=== PATIENT | male | born 1965 | race Caucasian/White ===

== ENCOUNTER 2018-05-29 10:46 | Inpatient (IN) | payer OTHER ==
[~2018-05-29] VITALS: Ht 170.2 cm; Wt 100.7 kg
[2018-05-29 11:17] VITALS: BP 165/95
--- NOTE | 2018-05-29 11:32 | NUR ---
52 yo m bib self with c/o generalized abdominal pain since 0300 today with nausea. Patient denies any recent fevers, diarrhea, or vomitting. pt reports that his last bm was yesterday, and that it was "normal". Pt reports feeling as though his abdomen is distended and bloated. abd is large, round, and firm. Pt reports that he has been eating/drinking fine up until this morning. Patient also reports of mid/lower back pain. pt aaox4, gcs 15, cms intact. rr even and unlabored, lungs bl clear. bowel sounds active x 4 quadrants. ambulatory w/ steady gait. er md notified. pt needs met. safety precautions in place. will continue to monitor.
[2018-05-29] MEDS ORDERED: NACL 0.9% 1,000 ML IV ONE (11:56)
[2018-05-29] MEDS ORDERED: PROMETHAZINE 25 MG/ML VIAL IM ONE (12:00)
[2018-05-29] MEDS ORDERED: HYDROmorphone PFS 2 MG/ML SYR IVP ONE (12:00)
[2018-05-29] MEDS ORDERED: ONDANSETRON 4 MG/2 ML VIAL IVP ONE (12:00)
[2018-05-29] MEDS ORDERED: KETOROLAC 30 MG/ML VIAL IVP ONE (12:00)
[2018-05-29 12:30] LABS: BASOPHILS # (AUTO) 0.1 K/uL (0.00-0.22); BASOPHILS % (AUTO) 0.8 % (0.0-2.0); EOSINOPHILS # (AUTO) 0.1 K/uL (0-0.4); EOSINOPHILS % (AUTO) 0.6 % (0.0-4.0); HEMATOCRIT 42.7 % (36-52); HEMOGLOBIN 14.9 g/dL (12.0-18.0); LYMPHOCYTES # (AUTO) 2.4 K/uL (2.0-11.5); LYMPHOCYTES % (AUTO) 14.4 % (20.5-51.1); MEAN CORPUSCULAR HEMOGLOBIN 32 pg (27-31); MEAN CORPUSCULAR HGB CONC 35 g/dL (33-37); MEAN CORPUSCULAR VOLUME 90.5 fL (80-94); MONOCYTES # (AUTO) 1.8 K/uL (0.8-1.0); MONOCYTES % (AUTO) 10.9 % (1.7-9.3); NEUTROPHILS # (AUTO) 12.3 K/uL (1.8-7.7); NEUTROPHILS % (AUTO) 73.3 % (42.2-75.2); PLATELET COUNT (AUTO) 256 K/uL (140-450); RED BLOOD CELL COUNT(AUTO) 4.71 MIL/uL (4.20-6.10); WHITE BLOOD COUNT (AUTO) 16.8 K/uL (4.8-10.8)
--- NOTE | 2018-05-29 12:30 | NUR ---
pt resting on hospital [facility] w/ vss and rr even and unlabored. safety precautions in place. will continue to monitor.
[2018-05-29 12:45] LABS: APPEARANCE,URINE CLEAR (CLEAR); BILIRUBIN,URINE NEGATIVE (NEGATIVE); BLOOD, URINE TRACE-L (NEGATIVE); COLOR,URINE YELLOW (YELLOW); LEUKOCYTE ESTERASE ,URINE NEGATIVE (NEGATIVE); NITRITE, URINE NEGATIVE (NEGATIVE); UGLUCOSE NEGATIVE (NEGATIVE)
[2018-05-29 12:57] LABS: ANION GAP 12.4 (8-16); CARBON DIOXIDE 25.2 mmol/L (21-32); CHLORIDE 98 mmol/L (98-107); CREATININE 2.8 mg/dL (0.7-1.3); GFR ARICAN-AMERICAN 31 mL/min (>90); GLUCOSE 118 mg/dL (74-106); POTASSIUM 3.6 mmol/L (3.5-5.1); SODIUM SERUM 132 mmol/L (136-145); UREA NITROGEN, BLOOD 36 mg/dL (7-18)
[2018-05-29 12:58] LABS: RBC,URINE 0-5 (RARE) /HPF (0-5); WBC,URINE 0-5 (RARE) /HPF (0-5)
[2018-05-29 13:03] LABS: AMYLASE 43 U/L (25-115); ASPARTATE AMINOTRANSFERASE 39 U/L (15-37); BARBITURATE, URINE NEG. ng/ml (NEG <=200); BENZODIAZEPINE, URINE NEG. ng/mL (NEG <=200); CANNABINOID, URINE NEG. ng/mL (NEG <=50); COCAINE, URINE NEG. ng/mL (NEG <=300); LIPASE 177 U/L (73-393); OPIATE, URINE NEG. ng/mL (NEG <=2000); PHENCYCLIDINE SCREEN,URINE NEG. ng/mL (NEG <=25); TOTAL BILIRUBIN 1.2 mg/dL (0.0-1.0)
--- NOTE | 2018-05-29 13:07 | NUR ---
pt taken to ct scan at this time via w/c w/ ebenezers
--- NOTE | 2018-05-29 14:00 | NUR ---
pt resting comfortably in [facility] at this time w/ vss and rr even and unlabored. will continue to monitor.
[2018-05-29 14:20] LABS: URIC ACID 8.9 mg/dL (2.6-7.2)
[2018-05-29 14:32] LABS: MAGNESIUM 1.5 mg/dL (1.8-2.4)
--- NOTE | 2018-05-29 15:05 | NUR ---
u/s at bedside at this time.
[2018-05-29] MEDS ORDERED: ONDANSETRON 4 MG/2 ML VIAL IM/IVP PRN (16:05)
[2018-05-29] MEDS ORDERED: ACETAMINOPHEN 325 MG TAB PO PRN (16:05)
[2018-05-29] MEDS: NACL 0.9% 1,000 ML IV SCH (16:05)
[2018-05-29] MEDS ORDERED: DOCUSATE SODIUM 100 MG GELCAP PO PRN (16:05)
--- NOTE | 2018-05-29 16:32 | NUR ---
pt resting comfortably in [facility] at this time w/ vss and rr even and unlabored. safety precautions in place. will continue to monitor.
[2018-05-29 16:37] LABS: PROTHROMBIN TIME 9.7 secs (10.8-13.4)
[2018-05-29 16:48] LABS: CHOL/HDL RATIO 3.2 (1-4.5)
[2018-05-29 16:49] LABS: THYROID STIMULATING HORMONE 0.99 uIU/mL (0.34-3.74)
[2018-05-29] MEDS ORDERED: MAG SULF 2000 MG/WATER PREMIX 50 ML IV ONE (16:50)
--- NOTE | 2018-05-29 17:35 | NUR ---
Patient will be admitted to care of [facility]. Admited tele. Will go to room 120a. Belongings list completed. Report to ryley pressley.
--- NOTE | 2018-05-29 17:35 | NUR ---
ARRIVED ON THE UNIT WITH 2 ER NURSES ON A WHEELCHAIR. PT AMBULATED FROM WHEELCHAIR TO THE BED. STEADY GAIT. PT IS ON ROOM AIR. TELE MONITOR ADMINISTERED. IV ON R AC 20G. V/S WITHIN NORMAL LIMITS. C/O OF ABD PAIN 5-6/10. PT IS WEARING GOWN OVER HIS JEANS AND TSHIRT. 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 MRSA SCREENING DONE. ADMINISTERED BROWN SOCKS. WILL CONTINUE TO MONITOR PT.
[2018-05-29 18:00] VITALS: BP 133/87
[2018-05-29] MEDS ORDERED: amLODIPine 5 MG TAB PO SCH (18:00)
[2018-05-29] MEDS ORDERED: THIAMINE 100 MG TAB PO SCH (18:00)
[2018-05-29] MEDS ORDERED: FAMOTIDINE 20 MG TAB PO SCH (18:00)
[2018-05-29] MEDS ORDERED: MULTIVITAMIN 1 TAB PO SCH (18:00)
[2018-05-29] MEDS ORDERED: LORazepam 1 MG TAB PO SCH (18:00)
[2018-05-29] MEDS ORDERED: DOCUSATE SODIUM 100 MG GELCAP PO SCH (18:00)
[2018-05-29] MEDS ORDERED: FOLIC ACID 1 MG TAB PO SCH (18:00)
--- NOTE | 2018-05-29 18:05 | NUR ---
HUNG IVF AT 100ML/HR ORDERED. WILL CONTINUE TO MONITOR PT. SensorTran TECH IS HERE TO DO THE COMPLETE ABD SERIES.
[2018-05-29] MEDS: MAGNESIUM SULFATE 1GM in DEXTROSE 5% 100 ML PREMIX IV SCH ×2 (18:44→21:15)
[2018-05-29] MEDS: MORPHINE SULFATE 2 MG/ML SYR IVP PRN (18:44)
--- NOTE | 2018-05-29 18:50 | NUR ---
SCHEDULED MEDS GIVEN. PT REQUESTED PAIN MEDS. 04/01. ADMINISTERED MORPHINE. PT TOLERATED WELL. WILL CONTINUE TO MONITOR PT.
--- NOTE | 2018-05-29 19:15 | NUR ---
ENDORSED PT TO TO THE INTEGRATED PROGRAM TEACHER NURSE AT BEDSIDE FOR CONTINUITY OF CARE. PT IS IN STABLE CONDITION.
--- NOTE | 2018-05-29 19:15 | NUR ---
RECEIVED BEDSIDE REPORT FROM DAY SHIFT RN TANJA, PT IN BED, AWAKE, ALERT AND ABLE TO MAKE NEEDS KNOWN, ON RA, NO C/O PAIN AT THIS TIME. IV IN RIGHT FA 20 G, INFUSING MG AT 100 ML/HR. WILL INFUSE 2ND BAG ONCE 1ST IS COMPLETE. UPDATED BOARD, EXPLAINED PLAN OF CARE, WILL CONTINUE TO MONITOR.
[2018-05-29 20:00] VITALS: BP 122/70
--- NOTE | 2018-05-29 21:00 | NUR ---
PT RESTING IN BED NO SIGNS OF DISTRESS. WILL CONTINUE TO MONITOR CALL LIGHT WITHIN REACH.
--- NOTE | 2018-05-29 23:00 | NUR ---
PT SLEEPING IN BED NO SIGNS OF DISTRESS. WILL CONTINUE TO MONITOR CALL LIGHT WITHIN REACH.
[2018-05-30] VITALS: BP 155/100
[2018-05-30] MEDS: MORPHINE SULFATE 2 MG/ML SYR IVP PRN ×2 (00:50→08:51)
--- NOTE | 2018-05-30 00:50 | NUR ---
PT C/O PAIN 10/10 IN ABDOMEN. MEDICATED ACCORDING TO MD ORDER.
[2018-05-30] MEDS: NACL 0.9% 1,000 ML IV SCH ×4 (00:54→19:54)
--- NOTE | 2018-05-30 03:00 | NUR ---
PT ASLEEP NO SIGNS OF DISTRESS. WILL CONTINUE TO MONITOR.
[2018-05-30 04:00] VITALS: BP 148/50
[2018-05-30] MEDS: LORazepam 1 MG TAB PO SCH ×3 (04:55→21:21)
--- NOTE | 2018-05-30 05:30 | NUR ---
D/C IV D/T PAIN. STARTED NEW IV IN RIGHT ARM, 22 G, DRESSING INTACT. DUE MEDICATIONS GIVEN PT TOLERATED WELL.
[2018-05-30 06:20] LABS: T4 (THYROXINE) 7.5 ug/dL (4.5-12.0)
--- NOTE | 2018-05-30 07:13 | NUR ---
ENDORSED PT TO DAY SHIFT NURSE, PT STABLE
--- NOTE | 2018-05-30 07:14 | NUR ---
RECEIVED BEDSIDE REPORT FROM PROP ATTENDANT NURSE FOR CONTINUITY OF CARE, PT IN BED, AWAKE, ALERT AND ABLE TO MAKE NEEDS KNOWN, ON RA, NO C/O PAIN AT THIS TIME. IV IN RIGHT FA 22 G, INFUSING NS AT 120 ML/HR. UPDATED BOARD, EXPLAINED PLAN OF CARE, PATIENT VERBALIZED UNDERSTANDING. SAFETY PRECAUTION IN PLACE, CALL LIGHT WITHIN REACH. WILL CONTINUE TO MONITOR PATIENT.
[2018-05-30 07:50] VITALS: BP 140/97
[2018-05-30] MEDS: FOLIC ACID 1 MG TAB PO SCH (08:49)
[2018-05-30] MEDS: MULTIVITAMIN 1 TAB PO SCH (08:49)
[2018-05-30] MEDS: DOCUSATE SODIUM 100 MG GELCAP PO SCH (08:49)
[2018-05-30] MEDS: THIAMINE 100 MG TAB PO SCH (08:49)
[2018-05-30] MEDS: FAMOTIDINE 20 MG TAB PO SCH (08:49)
[2018-05-30] MEDS: LACTOBACILLUS RHAMNOSUS GG 1 EACH CAP PO SCH (08:49)
[2018-05-30] MEDS: amLODIPine 5 MG TAB PO SCH (08:50)
--- NOTE | 2018-05-30 08:51 | NUR ---
ORDERED MEDICATION GIVEN. PATIENT TOLERATED THEM WELL. PATIENT C/O ABD PAIN 06/02. ORDERED PAIN MEDICATION GIVEN. PATIENT TOLERATING IT WELL. SAFETY PRECAUTION IN PLACE, CALL LIGHT WITHIN REACH, WILL CONTINUE TO MONITOR PATIENT.
[2018-05-30 08:57] LABS: BASOPHILS # (AUTO) 0.1 K/uL (0.00-0.22); BASOPHILS % (AUTO) 0.9 % (0.0-2.0); EOSINOPHILS # (AUTO) 0.3 K/uL (0-0.4); EOSINOPHILS % (AUTO) 2.3 % (0.0-4.0); HEMOGLOBIN 13.2 g/dL (12.0-18.0); LYMPHOCYTES # (AUTO) 2.1 K/uL (2.0-11.5); LYMPHOCYTES % (AUTO) 18.8 % (20.5-51.1); MEAN CORPUSCULAR HEMOGLOBIN 31 pg (27-31); MEAN CORPUSCULAR HGB CONC 34 g/dL (33-37); MEAN CORPUSCULAR VOLUME 92.1 fL (80-94); MONOCYTES # (AUTO) 1.1 K/uL (0.8-1.0); MONOCYTES % (AUTO) 9.9 % (1.7-9.3); NEUTROPHILS # (AUTO) 7.5 K/uL (1.8-7.7); NEUTROPHILS % (AUTO) 68.1 % (42.2-75.2); PLATELET COUNT (AUTO) 236 K/uL (140-450); RED BLOOD CELL COUNT(AUTO) 4.24 MIL/uL (4.20-6.10); RED CELL DISTRIBUTION WIDTH 12.8 % (11.6-13.7)
--- NOTE | 2018-05-30 09:06 | NUR ---
PATIENT HAS BEEN SCREENED AND CATEGORIZED MODERATE NUTRITION RISK. PATIENT WILL BE SEEN WITHIN 3-5 DAYS OF ADMISSION. 06/01/18 06/03/[address]
[2018-05-30 09:13] LABS: ANION GAP 10.8 (8-16); CARBON DIOXIDE 25.4 mmol/L (21-32); POTASSIUM 3.2 mmol/L (3.5-5.1)
[2018-05-30 12:00] VITALS: BP 160/91
[2018-05-30] MEDS: KCL 20 MEQ/WATER INJ PREMIX 200 ML IV SCH ×2 (12:00→13:10)
[2018-05-30] MEDS ORDERED: CALCIUM ACETATE 667 MG TAB PO SCH (12:00)
--- NOTE | 2018-05-30 12:54 | NUR ---
PATIENT SITTING AT SIDE OF BED EATING LUNCH. NO SIGNS OF DISTRESS OR SOB NOTED ON ROOM AIR. ORDERED MEDICATION GIVEN. PATIENT TOLERATING IT WELL. PATIENT INQUIRED ABOUT PAIN MEDICATION. INFORMED HIM OF SCHEDULE, HE VERBALIZED UNDERSTANDING. WILL CONTINUE TO MONITOR PATIENT.
--- NOTE | 2018-05-30 13:50 | NUR ---
DR. SOLIS IN TO SEE THE PATIENT. WILL WAIT FOR HIS ASSESSMENT.
[2018-05-30] MEDS: HYDROcodone/APAP 7.5/325 MG 1 TAB PO PRN ×3 (14:31→23:01)
--- NOTE | 2018-05-30 14:31 | NUR ---
PATIENT ASKED ABOUT HIS PAIN MEDICATION, DR. SOLIS DISCONTINUED MORPHINE. PATIENT C/O ABD PAIN 03/02. NORCO 7.5 GIVEN. PATIENT TOLERATING IT WELL. SAFETY PRECAUTION IN PLACE, CALL LIGHT WITHIN REACH, WILL CONTINUE TO MONITOR PATIENT. Addendum: 05/30/18 at 1756 by Da Jose RN ORDERED MEDICATIONS GIVEN. PATIENT TOLERATED THEM WELL. NO SIGNS OF DISTRESS OR SOB NOTED ON ROOM AIR. WILL CONTINUE TO MONITOR PATIENT.
--- NOTE | 2018-05-30 14:50 | NUR ---
CM NOTE INITIAL REVIEW FAXED TO [facility] [phone] BRENDA PH# [phone] NIMA MARTINEZ PH# [phone] Addendum: 05/30/18 at 1452 by Meg Bauman CM INITIAL REVIEW FAXED ALSO TO [facility] [phone] MARIA DEL ROSARIO PH# [phone]
[2018-05-30] MEDS ORDERED: MAGNESIUM CITRATE 300 ML BTL PO SCH (15:00)
[2018-05-30 16:00] VITALS: BP 133/72
--- NOTE | 2018-05-30 16:10 | NUR ---
PATIENT RESTING IN BED, WATCHING SHOW ON TABLET. C/O ABD PAIN BUT AWARE OF PAIN MEDICATION SCHEDULED. WILL CONTINUE TO MONITOR PATIENT.
--- NOTE | 2018-05-30 17:50 | NUR ---
CALLED PHARMACIST ABOUT PATIENT'S KRIDER. 2 BAGS GIVEN ORDERED. HOWEVER, ON EMAR, ANOTHER BAG IS TO BE GIVEN ON 05/31/18. INFORMED PHARMACIST OF SITUATION. HE VERBALIZED UNDERSTANDING AND DISCONTINUED ORDER FOR TOMORROW.
--- NOTE | 2018-05-30 19:54 | NUR ---
PATIENT REPORT GIVEN TO QUALITY INTERNSHIP NURSE AT BEDSIDE FOR CONTINUITY OF CARE. PATIENT IN STABLE CONDITION. FRIEND AT BEDSIDE.
--- NOTE | 2018-05-30 19:55 | NUR ---
RECEIVED PT FROM BRENT RN PT IS AAOX4 AMBBULATOY IV ON RT ARM INFUSING WELL ON TELEMETRY SR NOT DISTRES NOTED A THIS TIME
[2018-05-30 20:00] VITALS: BP 146/87
--- NOTE | 2018-05-30 23:58 | NUR ---
AFTER PAIN MEDIC GIVEN PT SLEEP QUIET PT ON TELMETRY SR
[2018-05-31 04:00] VITALS: BP 130/91
--- NOTE | 2018-05-31 04:00 | NUR ---
SPONGE BATH GIVEN LINEN CHANGED PT REMAIN STABLE AT THIS TIME ON TELEMETRY SR BBB
[2018-05-31] MEDS: LORazepam 1 MG TAB PO SCH ×2 (05:46→12:59)
--- NOTE | 2018-05-31 06:30 | NUR ---
PT REMAIN STABLE NOT DISTRESS NOTED ON TELEMETRY SR BBB
[2018-05-31 07:10] LABS: BASOPHILS # (AUTO) 0.1 K/uL (0.00-0.22); BASOPHILS % (AUTO) 1.5 % (0.0-2.0); EOSINOPHILS # (AUTO) 0.3 K/uL (0-0.4); EOSINOPHILS % (AUTO) 3.4 % (0.0-4.0); HEMOGLOBIN 12.7 g/dL (12.0-18.0); LYMPHOCYTES # (AUTO) 2.8 K/uL (2.0-11.5); LYMPHOCYTES % (AUTO) 31.8 % (20.5-51.1); MEAN CORPUSCULAR HEMOGLOBIN 32 pg (27-31); MEAN CORPUSCULAR HGB CONC 34 g/dL (33-37); MEAN CORPUSCULAR VOLUME 91.6 fL (80-94); MONOCYTES # (AUTO) 0.8 K/uL (0.8-1.0); MONOCYTES % (AUTO) 9.5 % (1.7-9.3); NEUTROPHILS # (AUTO) 4.8 K/uL (1.8-7.7); NEUTROPHILS % (AUTO) 53.8 % (42.2-75.2); PLATELET COUNT (AUTO) 233 K/uL (140-450); RED BLOOD CELL COUNT(AUTO) 4.04 MIL/uL (4.20-6.10); RED CELL DISTRIBUTION WIDTH 12.8 % (11.6-13.7); WHITE BLOOD COUNT (AUTO) 8.9 K/uL (4.8-10.8)
[2018-05-31 07:18] LABS: ANION GAP 10.3 (8-16); CARBON DIOXIDE 28.2 mmol/L (21-32); CREATININE 1.3 mg/dL (0.7-1.3); POTASSIUM 3.5 mmol/L (3.5-5.1)
--- NOTE | 2018-05-31 07:20 | NUR ---
RECEIVED BEDSIDE REPORT FROM THERMODYNAMICIST NURSE. PATIENT IS AWAKE, ALERT AND ORIENTEDX4. NO SIGNS OF DISTRESS ON ROOM AIR. BED IN LOW POSITION. CALL LIGHT WITHIN REACH. NO COMPLAINTS OF PAIN. PATIENT AMBULATES TO THE RESTROOM. SKIN IS INTACT. IV ON R FA 22G INFUSING NS AT 80. CLEAN, DRY AND INTACT. TELE MONITOR IN PLACE. WILL CONTINUE TO MONITOR THE PATIENT
[2018-05-31 07:24] LABS: MAGNESIUM 2.2 mg/dL (1.8-2.4); PHOSPHORUS 3.5 mg/dL (2.5-4.9)
[2018-05-31 08:00] VITALS: BP 146/88
[2018-05-31] MEDS: NACL 0.9% 1,000 ML IV SCH (08:00)
[2018-05-31] MEDS: amLODIPine 5 MG TAB PO SCH (08:12)
[2018-05-31] MEDS: HYDROcodone/APAP 7.5/325 MG 1 TAB PO PRN ×4 (08:12→22:20)
[2018-05-31] MEDS: FAMOTIDINE 20 MG TAB PO SCH (08:14)
[2018-05-31] MEDS: LACTOBACILLUS RHAMNOSUS GG 1 EACH CAP PO SCH (08:14)
[2018-05-31] MEDS: THIAMINE 100 MG TAB PO SCH (08:14)
[2018-05-31] MEDS: FOLIC ACID 1 MG TAB PO SCH (08:14)
[2018-05-31] MEDS: MULTIVITAMIN 1 TAB PO SCH (08:14)
[2018-05-31] MEDS: DOCUSATE SODIUM 100 MG GELCAP PO SCH (08:15)
--- NOTE | 2018-05-31 08:15 | NUR ---
ADMINISTERED MEDS. PATIENT TOLERATED WELL. ADMINISTERED PRN PAIN MEDS. BED IN LOW POSITION. CALL LIGHT WITHIN REACH. WILL CONTINUE TO MONITOR
--- NOTE | 2018-05-31 10:21 | NUR ---
PATIENT SITTING IN BED. NO SIGNS OF DISTRESS. NO COMPLAINTS AT THIS TIME. HE JUST WANTS TO KNOW WHEN HE IS GOING HOME. TOLD HIM THEY WANT TO MONITOR HIM ONE MORE DAY PER DR RAO TO SEE IF THE FOREIGN OBJECT IS REMOVED AFTER BEING GIVEN LAXATIVES. PATIENT VERBALIZED UNDERSTANDING. WILL CONTINUE TO MONITOR THE PATIENT
[2018-05-31 12:00] VITALS: BP 147/86
--- NOTE | 2018-05-31 12:05 | NUR ---
ADMINISTERED MEDS. PATIENT TOLERATED WELL. WILL CONTINUE TO MONITOR THE PATIENT. PATIENT IS CURRENTLY EATING. BED IN LOW POSITION. CALL LIGHT WITHIN REACH
--- NOTE | 2018-05-31 13:00 | NUR ---
ADMINISTERED MED FOR ALCOHOL WITHDRAW. PATIENT TOLERATED WELL. PATIENT WANTS TO GO HOME BECAUSE HE SAID ITS EXPENSIVE STAYING AT A HOSPITAL BUT WANTS TO TALK TO DR RAO TO MAKE A DECISION. DR RAO SAID SHE WILL BE IN SHORTLY. WILL CONTINUE TO MONITOR THE PATIENT
[2018-05-31] MEDS ORDERED: SIMETHICONE 80 MG TAB.CHEW PO PRN (13:40)
--- NOTE | 2018-05-31 14:50 | NUR ---
DR RAO TALKED TO THE PATIENT. ANSWERED ALL HIS QUESTIONS AT THIS TIME. PATIENT SAID HE WILL STAY TO BE MONITORED ONE MORE DAY. WILL CONTINUE TO MONITOR THE PATIENT
[2018-05-31 16:00] VITALS: BP 160/95
--- NOTE | 2018-05-31 16:12 | NUR ---
ADMINISTERED PRN PAIN MEDS. PATIENT TOLERATED WELL. WILL CONTINUE TO MONITOR THE PATIENT.
[2018-05-31] MEDS: METOPROLOL 25 MG TAB PO SCH (17:05)
--- NOTE | 2018-05-31 17:23 | NUR ---
PATIENT IS SLEEPING. NO SIGNS OF DISTRESS ON ROOM AIR. BED IN LOW POSITION. CALL LIGHT WITHIN REACH
[2018-05-31] MEDS ORDERED: METOPROLOL 25 MG TAB ONE (17:32)
--- NOTE | 2018-05-31 17:33 | NUR ---
ADMINISTERED BP MED. PATIENT TOLERATED WELL. BED IN LOW POSITION. CALL LIGHT WITHIN REACH. WILL CONTINUE TO MONITOR THE PATIENT
--- NOTE | 2018-05-31 19:23 | NUR ---
GAVE BEDSIDE REPORT TO PRIMER INSPECTOR NURSE. ENDORSED PATIENT IN STABLE CONDITION
--- NOTE | 2018-05-31 19:24 | NUR ---
RECEIVED REPORT FROM DAY SHIFT NURSE. PT LYING COMFORTABLY IN BED. AAOX4. NO C/O PAIN OR SOB. PT ON ROOM AIR. IV TO RIGHT FA #22G, NS AT 80 ML/HR, INFUSING WELL. SKIN INTACT. DISCUSSED PLAN OF CARE, PT VERBALIZED UNDERSTANDING. CALL LIGHT WITHIN REACH.
[2018-05-31 20:00] VITALS: BP 146/89
--- NOTE | 2018-05-31 22:20 | NUR ---
PT C/O ABDOMINAL PAIN 6/10 SCALE. NORCO 7.5/325 MG GIVEN ORDERED. PT TOLERATED WELL.
[2018-06-01] VITALS: BP 149/96
--- NOTE | 2018-06-01 00:10 | NUR ---
[facility]/96. DR. CHAPMAN MADE AWARE. NO NEW ORDER.
--- NOTE | 2018-06-01 02:30 | NUR ---
PT SLEEPING BUT EASILY AROUSABLE. NO S/S OF RESP DISTRESS. NO S/S OF PAIN.
[2018-06-01] MEDS: HYDROcodone/APAP 7.5/325 MG 1 TAB PO PRN ×2 (03:52→09:21)
--- NOTE | 2018-06-01 03:52 | NUR ---
PRN PAIN MED NORCO 7.5/325 MG GIVEN FOR MODERATE PAIN. PT TOLERATED WELL.
--- NOTE | 2018-06-01 06:10 | NUR ---
PT SLEEPING. RESP EVEN AND UNLABORED. NO S/S OF PAIN OR DISCOMFORT.
--- NOTE | 2018-06-01 07:09 | NUR ---
ENDORSED PT TO DAY SHIFT NURSE. PT IN STABLE CONDITION.
--- NOTE | 2018-06-01 07:09 | NUR ---
ASSUMED CONTINUITY OF CARE. NO SIGNS AND SYMPTOMS OF ACUTE DISTRESS NOTICED. INITIAL ASSESSMENT DONE. KEEP COMFORTABLE ON BED. EXPLAINED DIAGNOSIS, PLAN OF CARE, PAIN MANAGEMENT TEACHING, USE OF CALL LIGHT/BED/TV/BATHROOM. VERBALIZED UNDERSTANDING. CALL LIGHT WITHIN REACH.
--- NOTE | 2018-06-01 07:10 | NUR ---
Patient's Plan of Care was discussed and reviewed with LEGAL SERVICE SPECIALIST: ORI WAKEFIELD
[2018-06-01 07:52] LABS: BASOPHILS # (AUTO) 0.1 K/uL (0.00-0.22); BASOPHILS % (AUTO) 0.8 % (0.0-2.0); EOSINOPHILS # (AUTO) 0.4 K/uL (0-0.4); EOSINOPHILS % (AUTO) 3.8 % (0.0-4.0); HEMATOCRIT 36.6 % (36-52); HEMOGLOBIN 12.6 g/dL (12.0-18.0); LYMPHOCYTES # (AUTO) 3.2 K/uL (2.0-11.5); LYMPHOCYTES % (AUTO) 31.2 % (20.5-51.1); MEAN CORPUSCULAR HEMOGLOBIN 32 pg (27-31); MEAN CORPUSCULAR HGB CONC 35 g/dL (33-37); MEAN CORPUSCULAR VOLUME 91.4 fL (80-94); MONOCYTES # (AUTO) 0.7 K/uL (0.8-1.0); NEUTROPHILS # (AUTO) 5.8 K/uL (1.8-7.7); NEUTROPHILS % (AUTO) 57.2 % (42.2-75.2); PLATELET COUNT (AUTO) 230 K/uL (140-450); RED BLOOD CELL COUNT(AUTO) 4.01 MIL/uL (4.20-6.10); RED CELL DISTRIBUTION WIDTH 12.6 % (11.6-13.7); WHITE BLOOD COUNT (AUTO) 10.2 K/uL (4.8-10.8)
[2018-06-01 08:00] VITALS: BP 155/95
[2018-06-01 08:18] LABS: ALBUMIN 3.2 g/dL (3.4-5.0); ANION GAP 12.2 (8-16); CARBON DIOXIDE 25.5 mmol/L (21-32); CREATININE 1.1 mg/dL (0.7-1.3); MAGNESIUM 1.7 mg/dL (1.8-2.4); PHOSPHORUS 3.6 mg/dL (2.5-4.9); POTASSIUM 3.7 mmol/L (3.5-5.1); TOTAL BILIRUBIN 0.5 mg/dL (0.0-1.0)
[2018-06-01] MEDS: LACTOBACILLUS RHAMNOSUS GG 1 EACH CAP PO SCH (08:30)
[2018-06-01] MEDS: FOLIC ACID 1 MG TAB PO SCH (08:30)
[2018-06-01] MEDS: FAMOTIDINE 20 MG TAB PO SCH (08:30)
[2018-06-01] MEDS: DOCUSATE SODIUM 100 MG GELCAP PO SCH (08:30)
[2018-06-01] MEDS: MULTIVITAMIN 1 TAB PO SCH (08:30)
[2018-06-01] MEDS: METOPROLOL 25 MG TAB PO SCH (08:31)
[2018-06-01] MEDS: amLODIPine 5 MG TAB PO SCH (08:31)
[2018-06-01] MEDS: THIAMINE 100 MG TAB PO SCH (08:32)
[2018-06-01] MEDS: NACL 0.9% 1,000 ML IV SCH (09:35)
[2018-06-01] MEDS ORDERED: MAGNESIUM OXIDE 400 MG TAB PO SCH (10:17)
[2018-06-01 10:19] LABS: URIC ACID 8.1 mg/dL (2.6-7.2)
[2018-06-01 12:00] VITALS: BP 149/97
[2018-06-01] MEDS ORDERED: SIME80CT70 PO (12:12)
[2018-06-01] MEDS ORDERED: DOCU-299 PO (12:12)
--- NOTE | 2018-06-01 12:40 | NUR ---
EXPLAINED ABOUT MD D/C ORDER, D/C INSTRUCTIONS AND TEACHING, D/C PRESCRIPTION LIST EDUCATION, MD FOLLOW -UP, DISEASE MANAGEMENT TEACHING, PAIN MANAGEMENT TEACHING, DIET. VERBALIZED UNDERSTANDING.
--- NOTE | 2018-06-01 13:35 | NUR ---
REFUSED USE OF WHEELCHAIR FOR D/C. PT. AMBULATORY AND HAD STEADY GAIT AND BALANCE. D/C HOME, AWAKE, ALERT, AND ORIENTED X4. SPEECH CLEAR. NO C/O PAIN. NO SOB, NOTED. IN STABLE CONDITION. INFORMED CHARGE NURSE KHUSHBU PEREZ.
== END 2018-06-01 13:35 | disposition home or self-care (01) | DRG 254 ==
LOC: MED 10:46 → MTU 16:05
PROVIDERS: ADMIT General Practice; ATTEND General Practice
DX: T18.4XXA Foreign body in colon, initial encounter (principal); N17.0 Acute kidney failure with tubular necrosis; M62.82 Rhabdomyolysis; R65.10 Systemic inflammatory response syndrome (SIRS) of non-infectious origin without acute organ dysfunction; E87.1 Hypo-osmolality and hyponatremia; E83.42 Hypomagnesemia; K76.0 Fatty (change of) liver, not elsewhere classified; E44.1 Mild protein-calorie malnutrition; E86.0 Dehydration; K57.90 Diverticulosis of intestine, part unspecified, without perforation or abscess without bleeding; F10.20 Alcohol dependence, uncomplicated; E80.6 Other disorders of bilirubin metabolism; N20.0 Calculus of kidney; N18.9 Chronic kidney disease, unspecified; I12.9 Hypertensive chronic kidney disease with stage 1 through stage 4 chronic kidney disease, or unspecified chronic kidney disease; X58.XXXA Exposure to other specified factors, initial encounter; Y90.0 Blood alcohol level of less than 20 mg/100 ml; Y93.89 Activity, other specified; Z71.41 Alcohol abuse counseling and surveillance of alcoholic; Y92.89 Other specified places as the place of occurrence of the external cause; Y99.9 Unspecified external cause status
CPT/HCPCS: 36415; 71045; 74018; 76700; 80048; 80053; 80305; 81001; 82150; 82550; 82553; 83036; 83605; 83690; 83735; 83880; 84100; 84436; 84443; 84479; 84484; 84550; 85025; 85610; 85730; 87040; 87081; 93005; 93976; 96361; 96374; 96375; 99285; G0482; J1170; J1885; J2270; J2405; J2550; J3480; J7030; Q0092